=== PATIENT | male | born 1985 | race Caucasian/White ===

== ENCOUNTER 2024-03-30 16:53 | Inpatient (IN) | payer MEDICAID ==
[~2024-03-30] VITALS: Ht 180.3 cm; Wt 86.2 kg
[2024-03-30 16:56] VITALS: BP 142/94; PULSE 100; RESP 18; TEMP 98.1; O2SAT 98
[2024-03-30 18:19] LABS: BASOPHILS # (AUTO) 0.1 K/uL (0.00-0.22); BASOPHILS % (AUTO) 0.8 % (0.0-2.0); EOSINOPHILS # (AUTO) 0.1 K/uL (0-0.4); EOSINOPHILS % (AUTO) 1.9 % (0.0-4.0); HEMATOCRIT 34.9 % (36-52); HEMOGLOBIN 11.7 g/dL (12.0-18.0); LYMPHOCYTES # (AUTO) 0.7 K/uL (2.0-11.5); LYMPHOCYTES % (AUTO) 9.4 % (20.5-51.1); MEAN CORPUSCULAR HEMOGLOBIN 32 pg (27-31); MEAN CORPUSCULAR HGB CONC 34 g/dL (33-37); MEAN CORPUSCULAR VOLUME 96.5 fL (80-94); MONOCYTES # (AUTO) 0.5 K/uL (0.8-1.0); MONOCYTES % (AUTO) 6.2 % (1.7-9.3); NEUTROPHILS # (AUTO) 6.4 K/uL (1.8-7.7); NEUTROPHILS % (AUTO) 81.7 % (42.2-75.2); PLATELET COUNT (AUTO) 192 K/uL (140-450); RED BLOOD CELL COUNT(AUTO) 3.61 MIL/uL (4.20-6.10); RED CELL DISTRIBUTION WIDTH 16.6 % (11.6-13.7); WHITE BLOOD COUNT (AUTO) 7.9 K/uL (4.8-10.8)
[2024-03-30 18:29] LABS: ANION GAP 23.6 (8-16); CARBON DIOXIDE 21.3 mmol/L (21-32)
[2024-03-30 18:33] LABS: POTASSIUM 6.9 mmol/L (3.5-5.1)
[2024-03-30 18:34] LABS: CALCIUM 5.9 mg/dL (8.5-10.1); CREATININE 12.6 mg/dL (0.6-1.3)
[2024-03-30] MEDS ORDERED: LORazepam 2 MG/ML VIAL ONE (18:42)
[2024-03-30] MEDS: LORazepam 2 MG/ML VIAL IVP ONE (19:00)
[2024-03-30] MEDS ORDERED: MORPHINE SULFATE 2 MG/ML SYR IVP PRN (21:50)
[2024-03-30] MEDS ORDERED: HYDROcodone/APAP 5/325 MG 1 TAB TAB PO PRN (21:50)
[2024-03-30] MEDS ORDERED: ACETAMINOPHEN 325 MG TAB PO PRN (21:50)
[2024-03-30] MEDS ORDERED: ALBUTEROL 0.083% 2.5 MG/3 ML NEBU INH PRN (21:50)
[2024-03-30] MEDS: INSULIN REGULAR, HUMAN 100 UNIT/ML VIAL IVP ONE (22:51)
[2024-03-30] MEDS: CALCIUM GLUC 1 GM/50 mL NS BAG 50 ML IV ONE (22:52)
[2024-03-30] MEDS: DEXTROSE 50% 50 ML SYR IVP ONE (22:52)
[2024-03-31 00:07] LABS: ANION GAP 21.3 (8-16); CALCIUM 6.1 mg/dL (8.5-10.1); CARBON DIOXIDE 22.3 mmol/L (21-32); POTASSIUM 5.6 mmol/L (3.5-5.1)
[2024-03-31 00:09] LABS: CREATININE 13.3 mg/dL (0.6-1.3)
[2024-03-31 02:45] VITALS: PULSE 78; RESP 18; O2SAT 98
[2024-03-31] MEDS: hydrALAZINE 20 MG/ML VIAL IVP PRN (03:27)
[2024-03-31 04:15] VITALS: BP 158/93; PULSE 87; RESP 18; TEMP 99.4; O2SAT 97
[2024-03-31 06:53] LABS: BASOPHILS % (AUTO) 0.5 % (0.0-2.0); EOSINOPHILS # (AUTO) 0.2 K/uL (0-0.4); HEMATOCRIT 36.6 % (36-52); HEMOGLOBIN 12.3 g/dL (12.0-18.0); LYMPHOCYTES # (AUTO) 1.1 K/uL (2.0-11.5); LYMPHOCYTES % (AUTO) 14.7 % (20.5-51.1); MEAN CORPUSCULAR HEMOGLOBIN 32 pg (27-31); MEAN CORPUSCULAR HGB CONC 34 g/dL (33-37); MONOCYTES # (AUTO) 0.6 K/uL (0.8-1.0); MONOCYTES % (AUTO) 7.2 % (1.7-9.3); NEUTROPHILS # (AUTO) 5.7 K/uL (1.8-7.7); NEUTROPHILS % (AUTO) 74.6 % (42.2-75.2); PLATELET COUNT (AUTO) 178 K/uL (140-450); RED BLOOD CELL COUNT(AUTO) 3.81 MIL/uL (4.20-6.10); RED CELL DISTRIBUTION WIDTH 16.2 % (11.6-13.7); WHITE BLOOD COUNT (AUTO) 7.7 K/uL (4.8-10.8)
[2024-03-31 08:00] VITALS: BP 137/83; PULSE 89; PULSE 96; RESP 19; TEMP 98.9; O2SAT 97
[2024-03-31 08:26] LABS: ANION GAP 26.8 (8-16); CARBON DIOXIDE 19.1 mmol/L (21-32)
[2024-03-31 08:27] LABS: MAGNESIUM 2.8 mg/dL (1.8-2.4)
[2024-03-31] MEDS: levETIRAcetam 500 MG in NACL 0.9% 100 ML IV SCH (08:40)
[2024-03-31 08:52] LABS: PHOSPHORUS 9.8 mg/dL (2.5-4.9)
[2024-03-31 08:54] LABS: CALCIUM 5.9 mg/dL (8.5-10.1); CREATININE 13.7 mg/dL (0.6-1.3); POTASSIUM 6.9 mmol/L (3.5-5.1)
[2024-03-31 12:00] VITALS: BP 152/92; PULSE 63; PULSE 82; RESP 18; TEMP 98.5; O2SAT 95
[2024-03-31] MEDS: CALCIUM ACETATE 667 MG TAB PO SCH (12:00)
[2024-03-31 16:00] VITALS: BP 142/82; PULSE 97; PULSE 98; RESP 19; TEMP 98.5; O2SAT 95
[2024-03-31 20:00] VITALS: BP 158/116; PULSE 84; RESP 18; TEMP 98.2; O2SAT 98
[2024-03-31] MEDS ORDERED: LORazepam 2 MG/ML VIAL IVP PRN (20:40)
[2024-03-31] MEDS: hydrALAZINE 25 MG TAB PO SCH (21:00)
[2024-04-01] VITALS: BP 158/99; PULSE 84; RESP 18; TEMP 98.2; O2SAT 96
[2024-04-01] MEDS: LORazepam 2 MG/ML VIAL IVP PRN (00:26)
[2024-04-01 04:00] VITALS: BP 147/79; PULSE 86; RESP 18; TEMP 97.8; O2SAT 96
[2024-04-01 06:56] LABS: BASOPHILS # (AUTO) 0.1 K/uL (0.00-0.22); BASOPHILS % (AUTO) 0.9 % (0.0-2.0); EOSINOPHILS # (AUTO) 0.2 K/uL (0-0.4); EOSINOPHILS % (AUTO) 2.8 % (0.0-4.0); HEMATOCRIT 37.7 % (36-52); HEMOGLOBIN 12.7 g/dL (12.0-18.0); LYMPHOCYTES # (AUTO) 1.3 K/uL (2.0-11.5); LYMPHOCYTES % (AUTO) 22.3 % (20.5-51.1); MEAN CORPUSCULAR HEMOGLOBIN 32 pg (27-31); MEAN CORPUSCULAR HGB CONC 34 g/dL (33-37); MEAN CORPUSCULAR VOLUME 96.1 fL (80-94); MONOCYTES # (AUTO) 0.7 K/uL (0.8-1.0); NEUTROPHILS # (AUTO) 3.6 K/uL (1.8-7.7); PLATELET COUNT (AUTO) 190 K/uL (140-450); RED BLOOD CELL COUNT(AUTO) 3.92 MIL/uL (4.20-6.10); RED CELL DISTRIBUTION WIDTH 16.1 % (11.6-13.7); WHITE BLOOD COUNT (AUTO) 5.7 K/uL (4.8-10.8)
[2024-04-01 07:22] LABS: ALBUMIN 3.7 g/dL (3.4-5.0); CALCIUM 6.8 mg/dL (8.5-10.1); CARBON DIOXIDE 24.7 mmol/L (21-32); MAGNESIUM 2.5 mg/dL (1.8-2.4); PHOSPHORUS 8.3 mg/dL (2.5-4.9); TOTAL BILIRUBIN 0.4 mg/dL (0.0-1.0); TOTAL PROTEIN, SERUM 6.7 g/dL (6.4-8.2)
[2024-04-01 08:00] VITALS: BP 142/100; PULSE 78; PULSE 82; RESP 20; TEMP 97.7; O2SAT 99
[2024-04-01 08:38] LABS: CREATININE 10.3 mg/dL (0.6-1.3); POTASSIUM 5.7 mmol/L (3.5-5.1)
[2024-04-01] MEDS: PANTOPRAZOLE 40 MG INJ VIAL IVP SCH (09:38)
[2024-04-01 12:00] VITALS: BP 152/97; PULSE 91; PULSE 94; RESP 20; TEMP 98.4; O2SAT 99
[2024-04-01 16:00] VITALS: BP 167/101; PULSE 71; PULSE 75; RESP 20; TEMP 97.9; O2SAT 99
[2024-04-01] MEDS: ONDANSETRON 4 MG/2 ML VIAL IVP PRN (19:07)
[2024-04-01 20:00] VITALS: BP 169/100; PULSE 94; RESP 20; TEMP 98.7; O2SAT 100; O2SAT 99
[2024-04-01] MEDS: QUEtiapine FUMARATE 25 MG TAB PO ONE (23:06)
[2024-04-02] VITALS: BP 156/101; PULSE 97; RESP 18; TEMP 98.4; O2SAT 98
[2024-04-02 04:00] VITALS: BP 156/90; PULSE 92; RESP 18; TEMP 98.3; O2SAT 100
[2024-04-02 07:12] LABS: BASOPHILS # (AUTO) 0.1 K/uL (0.00-0.22); EOSINOPHILS # (AUTO) 0.2 K/uL (0-0.4); EOSINOPHILS % (AUTO) 2.8 % (0.0-4.0); HEMATOCRIT 39.3 % (36-52); HEMOGLOBIN 13.4 g/dL (12.0-18.0); LYMPHOCYTES # (AUTO) 1.4 K/uL (2.0-11.5); LYMPHOCYTES % (AUTO) 21.7 % (20.5-51.1); MEAN CORPUSCULAR HEMOGLOBIN 33 pg (27-31); MEAN CORPUSCULAR HGB CONC 34 g/dL (33-37); MEAN CORPUSCULAR VOLUME 95.9 fL (80-94); MONOCYTES # (AUTO) 0.8 K/uL (0.8-1.0); MONOCYTES % (AUTO) 12.6 % (1.7-9.3); NEUTROPHILS # (AUTO) 3.9 K/uL (1.8-7.7); NEUTROPHILS % (AUTO) 61.9 % (42.2-75.2); PLATELET COUNT (AUTO) 214 K/uL (140-450); RED CELL DISTRIBUTION WIDTH 16.1 % (11.6-13.7); WHITE BLOOD COUNT (AUTO) 6.3 K/uL (4.8-10.8)
[2024-04-02 07:40] LABS: ALBUMIN 3.9 g/dL (3.4-5.0); CALCIUM 8.1 mg/dL (8.5-10.1); CARBON DIOXIDE 25.9 mmol/L (21-32); MAGNESIUM 2.4 mg/dL (1.8-2.4); PHOSPHORUS 7.2 mg/dL (2.5-4.9); POTASSIUM 4.9 mmol/L (3.5-5.1); TOTAL BILIRUBIN 0.5 mg/dL (0.0-1.0); TOTAL PROTEIN, SERUM 7.3 g/dL (6.4-8.2)
[2024-04-02 07:43] LABS: CREATININE 8.3 mg/dL (0.6-1.3)
[2024-04-02 08:00] VITALS: BP 139/105; PULSE 76; PULSE 86; RESP 20; TEMP 97.4; TEMP 98.4; O2SAT 99
[2024-04-02] MEDS: hydrALAZINE 25 MG TAB PO SCH (09:18)
[2024-04-02] MEDS: QUEtiapine FUMARATE 25 MG TAB PO SCH (09:19)
[2024-04-02] MEDS: amLODIPine 5 MG TAB PO SCH (09:21)
[2024-04-02 12:00] VITALS: BP 139/105; PULSE 94; PULSE 97; RESP 20; TEMP 97.3; O2SAT 99
[2024-04-02 16:00] VITALS: BP 134/94; PULSE 97; PULSE 99; RESP 20; TEMP 98; O2SAT 98
[2024-04-02 20:00] VITALS: BP 149/97; PULSE 76; PULSE 92; PULSE 96; RESP 18; RESP 20; TEMP 98.9; O2SAT 95; O2SAT 99
[2024-04-03] VITALS: BP 145/99; PULSE 111; PULSE 85; RESP 19; TEMP 98.6; O2SAT 97
[2024-04-03 04:00] VITALS: BP 134/94; PULSE 68; PULSE 74; RESP 18; TEMP 98.2; O2SAT 98
[2024-04-03 07:25] LABS: BASOPHILS # (AUTO) 0.1 K/uL (0.00-0.22); BASOPHILS % (AUTO) 1.1 % (0.0-2.0); EOSINOPHILS # (AUTO) 0.3 K/uL (0-0.4); EOSINOPHILS % (AUTO) 4.4 % (0.0-4.0); HEMATOCRIT 39.6 % (36-52); HEMOGLOBIN 13.2 g/dL (12.0-18.0); LYMPHOCYTES % (AUTO) 25.5 % (20.5-51.1); MEAN CORPUSCULAR HEMOGLOBIN 32 pg (27-31); MEAN CORPUSCULAR HGB CONC 33 g/dL (33-37); MEAN CORPUSCULAR VOLUME 96.7 fL (80-94); MONOCYTES # (AUTO) 0.8 K/uL (0.8-1.0); MONOCYTES % (AUTO) 10.4 % (1.7-9.3); NEUTROPHILS # (AUTO) 4.5 K/uL (1.8-7.7); NEUTROPHILS % (AUTO) 58.6 % (42.2-75.2); PLATELET COUNT (AUTO) 249 K/uL (140-450); RED CELL DISTRIBUTION WIDTH 16.2 % (11.6-13.7); WHITE BLOOD COUNT (AUTO) 7.7 K/uL (4.8-10.8)
[2024-04-03 07:49] LABS: ANION GAP 21.6 (8-16); CALCIUM 7.9 mg/dL (8.5-10.1); CARBON DIOXIDE 25.4 mmol/L (21-32); MAGNESIUM 2.7 mg/dL (1.8-2.4); PHOSPHORUS 8.4 mg/dL (2.5-4.9); TOTAL BILIRUBIN 0.4 mg/dL (0.0-1.0); TOTAL PROTEIN, SERUM 7.3 g/dL (6.4-8.2)
[2024-04-03 07:51] LABS: CREATININE 11.5 mg/dL (0.6-1.3)
[2024-04-03 08:00] VITALS: BP 158/109; PULSE 76; PULSE 87; PULSE 89; RESP 18; RESP 20; TEMP 98.6; O2SAT 100; O2SAT 99
[2024-04-03 12:00] VITALS: BP 141/96; PULSE 71; PULSE 88; RESP 20; TEMP 97.6; O2SAT 99
[2024-04-03] MEDS ORDERED: LEVE500T18 PO (14:47)
[2024-04-03 15:55] VITALS: BP 142/98; PULSE 97; RESP 18; TEMP 98.6
[2024-04-03 16:00] VITALS: BP 156/104; PULSE 85; PULSE 97; RESP 20; TEMP 98.6; O2SAT 98
== END 2024-04-03 19:10 | disposition home or self-care (01) | DRG 53 ==
LOC: MED 16:53 → MMU 21:49 → MTU 03-31 01:34
PROVIDERS: ADMIT Student in an Organized Health Care Education/Training Program; ATTEND Student in an Organized Health Care Education/Training Program
PROC: 5A1D70Z Performance of Urinary Filtration, Intermittent, Less than 6 Hours Per Day (ICD-10-PCS; principal; 2024-03-31)
PROC: 5A1D70Z Performance of Urinary Filtration, Intermittent, Less than 6 Hours Per Day (ICD-10-PCS; 2024-04-01)
PROC: 5A1D70Z Performance of Urinary Filtration, Intermittent, Less than 6 Hours Per Day (ICD-10-PCS; 2024-04-03)
DX: G40.909 Epilepsy, unspecified, not intractable, without status epilepticus (principal); I12.0 Hypertensive chronic kidney disease with stage 5 chronic kidney disease or end stage renal disease; E83.39 Other disorders of phosphorus metabolism; E83.51 Hypocalcemia; D63.1 Anemia in chronic kidney disease; N18.6 End stage renal disease; E87.5 Hyperkalemia; F20.9 Schizophrenia, unspecified; Z99.2 Dependence on renal dialysis
CPT/HCPCS: 36415; 70450; 71045; 80048; 80053; 82948; 83735; 83880; 84100; 84484; 85025; 87081; 90935; 93005; 96374; 96375; 99285; C9113; J0360; J0610; J1644; J1815; J1953; J2060; J2405